=== PATIENT | female | born 1955 | race African-American/Black ===

== ENCOUNTER 2016-04-17 09:51 | Inpatient (IN) | payer OTHER ==
[~2016-04-17] VITALS: Ht 180.3 cm; Wt 113.4 kg
[2016-04-17 10:36] VITALS: BP 106/80
--- NOTE | 2016-04-17 10:48 | NUR ---
60/F CAME FROM [facility]; C/O N/V/D, COUGHX3-4 DAYS. PER CAREGIVER: LOSS OF APPETITE AND ENERGY. LOMOTIL WAS GIVEN YESTERDAY WITH NO RELIEF. Hx SCHIZOPHRENIA. SKIN IS PINK/WARM/DRY; AAOX4 WITH EVEN AND STEADY GAIT; LUNGS CLEAR BL WITH NON PRODUCTIVE COUGH; HR EVEN AND REGULAR; PT DENIES ANY CP OR SOB, PATIENT STATES PAIN OF 0/10 AT THIS TIME; VSS; PATIENT POSITIONED FOR COMFORT; HOB ELEVATED; BEDRAILS UP X2; BED DOWN. ER MD MADE AWARE OF PT STATUS.
--- NOTE | 2016-04-17 11:05 | NUR ---
Patient being evaluated by physician at bedside.
[2016-04-17] MEDS ORDERED: ACETAMINOPHEN EXTRA STRENGTH 500 MG TAB PO ONE (11:15)
--- NOTE | 2016-04-17 11:53 | NUR ---
WAITING FOR UA FROM PT. STATES UNABLE TO URINATE AT THIS TIME. GAVE WATER PER MD. CUP PLACED AT BEDSIDE. PT AWARE OF URINE NEEDED.
--- NOTE | 2016-04-17 12:16 | NUR ---
PT FINISHED CUP OF WATER. STATES UNABLE TO URINATE AT THIS TIME. FULL CUP OF WATER LEFT AT BEDSIDE.
--- NOTE | 2016-04-17 13:17 | NUR ---
PT LEFT VIA WC FOR CT.
--- NOTE | 2016-04-17 14:15 | NUR ---
PT STATES UNABLE TO URNATE OR WANTING TO TRY AT THIS TIME. GAVE ANOTHER FULL CUP OF WATER. WILL ASSES IN 15-20 MIN.
[2016-04-17] MEDS ORDERED: metroNIDAZOLE 500 MG/NS PREMIX 100 ML IV ONE (15:45)
[2016-04-17] MEDS ORDERED: NACL 0.9% 1,000 ML IV ONE (15:55)
[2016-04-17] MEDS ORDERED: cefTRIAXone 1,000 MG VIAL ONE (15:55)
[2016-04-17] MEDS ORDERED: ONDANSETRON 4 MG/2 ML VIAL IVP PRN (17:05)
[2016-04-17] MEDS ORDERED: MORPHINE SULFATE 2 MG/ML SYR IVP PRN (17:05)
[2016-04-17] MEDS ORDERED: MORPHINE SULFATE 4 MG/ML SYR IVP PRN (17:05)
[2016-04-17] MEDS ORDERED: ACETAMINOPHEN 325 MG TAB PO PRN (17:05)
[2016-04-17] MEDS ORDERED: VANCOMYCIN PER PHARMACY MC PRN (17:20)
--- NOTE | 2016-04-17 18:02 | NUR ---
Patient will be admitted to care of Srinath ZAYAS. Admited to TELE. Will go to room 115. Belongings list completed. Report to NILSA YADAV.
--- NOTE | 2016-04-17 18:16 | NUR ---
PT LEFT ON GURNEY TO RM 115.
--- NOTE | 2016-04-17 18:20 | NUR ---
RECEIVED REPORT FROM ER NURSE. VITALS STABLE, PT RESTING COMFORTABLY.
--- NOTE | 2016-04-17 18:30 | NUR ---
PATIENT TAKEN TO ROOM 115 WITH ALL BELONGINGS IN STABLE CONDITON WITH ER STAFF.
--- NOTE | 2016-04-17 19:13 | NUR ---
ENDORSED TO BOX WORKER NURSE IN STABLE CONDITION.
--- NOTE | 2016-04-17 19:30 | NUR ---
RECEIVED REPORT FROM VICENTA ASH AT BEDSIDE. Admitted from [facility] with chief complaint of DIARRHEA X 5DAYS, FEVER, CHILLS, HEADACHE, DYSURIA, NAUSEA. A 60 y/o. Female, Appropriate. ALERT AWAKE ORIENTED X4. INITIAL ASSESSMENT DONE. NO S/S OF RESPIRATORY DISTRESS OR SOB NOTED. NO C/O PAIN OR ANY DISCOMFORT AT THIS TIME. SKIN IS INTACT CLEAN DRY AND WARM TO TOUCH. PLAN OF CARE REVIEWED TO PT AND VERBALIZED UNDERSTANDING. oriented to call light, bed, phone,television, bathroom, smoking policy, visiting hours, procedures, ID bracelet on. Belongings list checked. CALL LIGHT WITHIN REACH. WILL CONTINUE TO MONITOR.
--- NOTE | 2016-04-17 20:30 | NUR ---
PT IS REFUSING THE ULTRASOUND TRANSVAGINAL RIGHT NOW. SHE'S ASKING THAT IT WILL BE DONE IN THE MORNING. WILL CONTINUE TO MONITOR.
[2016-04-17] MEDS ORDERED: PIPERACILLIN/TAZOBACTAM 3.375 GM in DEXTROSE 5% 50 ML IV SCH (21:00)
[2016-04-17] MEDS: NACL 0.9% 1,000 ML IV SCH (21:10)
[2016-04-17] MEDS: PIPER/TAZO 3.375GM/D5W PREMIX 50 ML IV SCH (21:12)
[2016-04-17] MEDS: VANCOMYCIN 1,250 MG in DEXTROSE 5% 250 ML IV SCH (21:12)
[2016-04-17] MEDS: guaiFENesin 20 MG/ML UDC PO PRN (22:43)
[2016-04-18] VITALS: BP 133/84
--- NOTE | 2016-04-18 00:20 | NUR ---
PT IS SLEEPING RIGHT NOW BUT EASILY AROUSABLE. NO S/S OF ANY DISCOMFORT AT THIS TIME. ALL NEEDS ARE ATTENDED. CALL LIGHT WITHIN REACH. WILL CONTINUE TO MONITOR.
[2016-04-18] MEDS: NACL 0.9% 1,000 ML IV SCH ×3 (03:02→23:03)
[2016-04-18 04:00] VITALS: BP 128/81
[2016-04-18] MEDS: PIPER/TAZO 3.375GM/D5W PREMIX 50 ML IV SCH ×3 (04:27→20:22)
--- NOTE | 2016-04-18 05:30 | NUR ---
AM CARE RENDERED. BED LINEN CHANGED. INSTRUCTED PT TO REPOSITION. KEPT CLEAN AND DRY. CALL LIGHT WITHIN REACH. WILL CONTINUE TO MONITOR.
--- NOTE | 2016-04-18 07:29 | NUR ---
PT HAS NO S/S OF ANY DISCOMFORT. PLAN OF CARE ENDORSED TO CHERELLE RN AT BEDSIDE FOR CONTINUITY OF CARE.
--- NOTE | 2016-04-18 07:40 | NUR ---
RECEIVED REPORT FROM THE EDGE FINISHER NURSE KEN AT BEDSIDE. PATIENT IS AWAKE, ALERT, ORIENTEDX4. IV ON THE LEFT FOREARM, INTACT, AND PATENT. INITIAL ASSESSMENT DONE. SKIN INTACT. NO ROOM AIR NO S/S OF SOB OR DISTRESS. VITAL TAKEN AND WITHIN THE NORMAL LIMIT. SAFETY MEASURE CHECKED AND WILL CONTINUE TO MONITOR. CALL LIGHT WITHIN REACH.
[2016-04-18 08:00] VITALS: BP 126/63
--- NOTE | 2016-04-18 08:15 | NUR ---
PATIENT HAS BEEN SCREENED AND CATEGORIZED HIGH NUTRITION RISK. PATIENT WILL BE SEEN WITHIN 1-2 DAYS OF ADMISSION. 04/18/16-04/19/[address]
[2016-04-18] MEDS: metroNIDAZOLE 250 MG TAB PO SCH ×2 (09:00→16:46)
--- NOTE | 2016-04-18 09:00 | NUR ---
DUE MED GIVE, PATIENT TOLERATING WELL. D/C IV ACCESS ON THE LEFT FOREARM. PATIENT COMPLAINED OF PAIN WHILE FLUSHING. INSERTED IV ACCESS ON THE RIGHT FOREARM WITH 20GAUGE. WILL CONTINUE TO MONITOR. CALL LIGHT WITHIN REACH.
[2016-04-18] MEDS: VANCOMYCIN 1,250 MG in DEXTROSE 5% 250 ML IV SCH ×2 (09:48→20:22)
--- NOTE | 2016-04-18 11:00 | NUR ---
PATIENT TAKEN FOR CT SCAN.
[2016-04-18 12:00] VITALS: BP 111/62
--- NOTE | 2016-04-18 12:00 | NUR ---
PATIENT RETURNED FROM CT. VITAL TAKES AND WITHIN THE NORMAL LIMIT. EATING LUNCH NO COMPLAINED OF PAIN.
--- NOTE | 2016-04-18 13:00 | NUR ---
ZOSYN STARTED INFUSING. PATIENT IS EATING. NO COMPLAINED OF PAIN OR S/S OF DISTRESS. CALL LIGHT WITHIN REACH.
--- NOTE | 2016-04-18 14:10 | NUR ---
04/18/16 RD INITIAL ASSESSMENT COMPLETED PLEASE REFER TO NUTRITION ASSESSMENT UNDER CARE ACTIVITY FOR ESTIMATED NUTRITIONAL NEEDS. RD RECOMMENDATIONS: 1. CONTINUE CLEAR LIQUID DIET MEDICALLY APPROPRIATE PER MD. 2. IF/WHEN PT IS MEDICALLY STABLE TO ADVANCE DIET, CONSIDER ADVANCE TOLERATED TO REGULAR DIET. --NOTE PT WITH INCREASED KCAL AND PROTEIN NEEDS D/T DX OF SEPSIS. 3. RD WILL F/U 3-5 DAYS; MODERATE RISK. SUSAN JEFFERS, RD
[2016-04-18] MEDS ORDERED: POTASSIUM CHLORIDE 10 MEQ TABER PO SCH (14:39)
--- NOTE | 2016-04-18 15:09 | NUR ---
K-DUR GIVEN FOR LOW POTASSIUM OF 3.4. PATIENT TOLERATED WELL.
[2016-04-18 16:00] VITALS: BP 104/83
--- NOTE | 2016-04-18 16:34 | NUR ---
VITALS TAKEN AND WITHIN THE NORMAL LIMIT. PATIENT DENIED ANY PAIN. NO S/S OF DISTRESS. CALL LIGHT WITHIN REACH.
--- NOTE | 2016-04-18 16:46 | NUR ---
DUE MEDS GIVEN, PATIENT TOLERATED. WILL CONTINUE TO MONITOR. CALL LIGHT WITHIN REACH.
--- NOTE | 2016-04-18 18:24 | NUR ---
PATIENT EATING DINNER. DENIED ANY PAIN. NO S/S OF DISTRESS. WILL CONTINUE TO MONITOR. CALL LIGHT WITHIN REACH.
--- NOTE | 2016-04-18 19:21 | NUR ---
GAVE REPORT TO THE EQUIPMENT VALIDATION SPECIALIST NURSE KEN AT BEDSIDE. PATIENT IS IN STABLE CONDITION AND ALL NEED MET AT THIS TIME.
--- NOTE | 2016-04-18 19:30 | NUR ---
RECEIVED REPORT FROM NAVDEEP ASH AT BEDSIDE. PT IS ALERT AWAKE ORIENTED X4. INITIAL ASSESSMENT DONE. NO S/S OF RESPIRATORY DISTRESS OR SOB NOTED. NO C/O PAIN OR ANY DISCOMFORT AT THIS TIME. PLAN OF CARE REVIEWED TO PT AND VERBALIZED UNDERSTANDING. CALL LIGHT WITHIN REACH. WILL CONTINUE TO MONITOR.
[2016-04-18 20:00] VITALS: BP 115/76
[2016-04-19] VITALS: BP 111/74
[2016-04-19] MEDS: guaiFENesin 20 MG/ML UDC PO PRN ×4 (01:23→23:14)
[2016-04-19 04:00] VITALS: BP 118/82
[2016-04-19] MEDS: PIPER/TAZO 3.375GM/D5W PREMIX 50 ML IV SCH ×3 (04:08→20:49)
--- NOTE | 2016-04-19 05:30 | NUR ---
AM CARE RENDERED. BED LINEN CHANGED. INSTRUCTED PT TO REPOSITION. KEPT CLEAN AND DRY. CALL LIGHT WITHIN REACH. WILL CONTINUE TO MONITOR.
--- NOTE | 2016-04-19 07:30 | NUR ---
PT HAS NO S/S OF ANY DISCOMFORT. PLAN OF CARE ENDORSED TO DENI ASH AT BEDSIDE FOR CONTINUITY OF CARE.
--- NOTE | 2016-04-19 07:30 | NUR ---
RECEIVED PT RESTING COMFORTABLY IN BED; AAOX4, ABLE TO VERBALIZE NEEDS. PT DENIES ANY N/V/D, NO S/S ACUTE DISTRESS AT THIS TIME. ROUTINE/PLAN OF CARE DISCUSSED AND REVIEWED, PT VERBALIZES UNDERSTANDING AND COMPLIANCE. IVF INFUSING WELL TO RIGHT FA, SITE ASYMPTOMATIC. CONTACT ISO AND SAFETY PRECAUTIONS OBSERVED AND MAINTAINED. CALL LIGHT IN REACH. WILL CONTINUE TO MONITOR.
[2016-04-19 08:00] VITALS: BP 128/72
[2016-04-19] MEDS: metroNIDAZOLE 250 MG TAB PO SCH ×2 (08:53→17:23)
[2016-04-19] MEDS: VANCOMYCIN 1,250 MG in DEXTROSE 5% 250 ML IV SCH ×2 (08:58→21:38)
[2016-04-19] MEDS: NACL 0.9% 1,000 ML IV SCH (09:02)
--- NOTE | 2016-04-19 09:06 | NUR ---
VSS. ADMINISTERED ROUTINE MEDS AND PRN ROBITUSSIN FOR COUGH ORDERED WITH EDUCATION; PT TOLERATED WELL. WILL INDEPENDENT ADLs OBSERVED. WILL CONTINUE TO MONITOR.
[2016-04-19 12:00] VITALS: BP 119/65
--- NOTE | 2016-04-19 12:50 | NUR ---
PT SHOWERED. CONTINUES TO DENY ANY N/V/D OR ABD PAIN. NOTIFIED DR BURROUGHS, NEW ORDERS ACKNOWLEDGED AND CARRIED OUT.
[2016-04-19 16:00] VITALS: BP 109/54
--- NOTE | 2016-04-19 16:15 | NUR ---
VSS. PT SEEN AND ASSESSED BY DR BURROUGHS, DISCUSSED PT CONDITION AND PLAN OF CARE.
--- NOTE | 2016-04-19 17:23 | NUR ---
SCHEDULE FLAGYL PO AND PRN ROBITUSSIN GIVEN ORDERED AT THIS TIME WITH EDUCATION, PT TOLERATED WELL. CONDITION REMAINS STABLE.
--- NOTE | 2016-04-19 19:20 | NUR ---
CONDITION REMAINS STABLE; ENDORSED PLAN OF CARE TO MORTARMAN COMMERCIAL ASSISTANT
--- NOTE | 2016-04-19 19:21 | NUR ---
RECD. RESTING IN BED, AWAKE, A/OX4. RESPIRATION EVEN AND UNLABORED. OCCASIONALLY COUGH, CLAIMED SPUTUM IS WHITE. IV SALINE LOCK RIGHT AC G22, PATENT AND INTACT. DENIES HAVING DIARRHEA. CUP FOR SPUTUM GIVEN, INSTRUCTED WHEN PHLEGM COMES OUT PUT IN THE CUP AND CALL NURSE. PLAN OF CARE FOR THE SHIFT DISCUSSED. VERBALIZED UNDERSTANDING. DENIES PAIN 0/10.
--- NOTE | 2016-04-19 19:30 | NUR ---
Patient's Plan of Care was discussed and reviewed with FISHING ROD ASSEMBLER: BABS Cortes
[2016-04-19 20:00] VITALS: BP 113/62
--- NOTE | 2016-04-19 20:30 | NUR ---
COMPLAINT OF UNCOMFORTABLE BED, MATTRESS TOO FIRM. ADDITIONAL 2 PILLOWS GIVEN FOR COMFORT.
--- NOTE | 2016-04-19 21:30 | NUR ---
COMPLAINT OF UNABLE TO HAVE BM SINCE ADMISSION. TWO WARM PRUNE JUICE GIVEN.
--- NOTE | 2016-04-19 23:14 | NUR ---
WITH COUGHING, MEDICATED WITH ROBITUSSIN 5 ML PO.
[2016-04-20] VITALS: BP 112/62
--- NOTE | 2016-04-20 00:14 | NUR ---
NO COUGHING NOTED, SLEEPING COMFORTABLY IN BED.
--- NOTE | 2016-04-20 02:35 | NUR ---
SLEEPING IN BED, NO APPEARANCE OF PAIN NOTED.
[2016-04-20 04:00] VITALS: BP 115/65
[2016-04-20] MEDS: PIPER/TAZO 3.375GM/D5W PREMIX 50 ML IV SCH ×2 (04:25→12:04)
[2016-04-20] MEDS: guaiFENesin 20 MG/ML UDC PO PRN ×2 (05:51→12:52)
--- NOTE | 2016-04-20 05:51 | NUR ---
COMPLAINT OF COUGHING, MEDICATED WITH ROBITUSSIN ORDERED.
--- NOTE | 2016-04-20 06:00 | NUR ---
REMINDED REGARDING HER SPUTUM FOR SENDING TO THE LAB, SEEMS STILL DROWSY.
--- NOTE | 2016-04-20 06:36 | NUR ---
RESTING COMFORTABLY IN BED, NO COUGHING NOTED.
--- NOTE | 2016-04-20 06:50 | NUR ---
CONDITION REMAIN STABLE. WILL ENDORSE TO AM NURSE FOR CONTINUITY OF CARE.
--- NOTE | 2016-04-20 07:15 | NUR ---
ENDORSED TO DARA LÓPEZ RN FOR CONTINUITY OF CARE.
--- NOTE | 2016-04-20 07:16 | NUR ---
RECEIVED REPORT FROM POST EXCHANGE MANAGER NURSE. PT EATING WITH GOOD APPETITE. PT IS AAOX4, DENIES PAIN/DISCOMFORT AT THIS TIME. SKIN IS DRY AND INTACT. IV IS PATENT AND FLOWING. PT IS ON ROOM AIR, VITALS STABLE. CALL LIGHT WITHIN REACH. WILL CONTINUE TO MONITOR.
[2016-04-20 08:00] VITALS: BP 108/64
[2016-04-20] MEDS: metroNIDAZOLE 250 MG TAB PO SCH ×2 (08:37→16:13)
--- NOTE | 2016-04-20 08:38 | NUR ---
PT KASANDRA MEDS WELL.
[2016-04-20] MEDS ORDERED: ENOXAPARIN 40 MG/0.4 ML SYR SUBQ SCH (09:00)
[2016-04-20] MEDS: VANCOMYCIN 1,250 MG in DEXTROSE 5% 250 ML IV SCH (09:17)
--- NOTE | 2016-04-20 09:17 | NUR ---
KRISTYN ADMINISTERED PER LAZARO FROM PHARMACY.
--- NOTE | 2016-04-20 11:56 | NUR ---
VITALS REMAIN STABLE. WILL CONTINUE TO MONITOR.
[2016-04-20 12:21] VITALS: BP 128/76
--- NOTE | 2016-04-20 12:52 | NUR ---
SPUTUM CULTURE SENT TO LAB. PT C/O COUGH, MEDICATED PRESCRIBED.
--- NOTE | 2016-04-20 14:36 | NUR ---
ALL NEEDS MET AT THIS TIME.
--- NOTE | 2016-04-20 15:58 | NUR ---
CM NOTE PER [facility] # [phone], REVIEWS SHOULD ONLY GO TO [facility]. INITIAL REVIEW SENT TO [facility] FAX# [phone] ATTN: FARZAD # [phone]
[2016-04-20 16:00] VITALS: BP 107/69
--- NOTE | 2016-04-20 16:23 | NUR ---
SS NOTE: I RECEIVED A CALL FROM MADDIE CHILDRESS FROM THE OFFICE OF PUBLIC GUARDIAN. HE STATED THAT PT'S PUBLIC GUARDIAN IS PRADIP HUMMEL ([phone]) AND HE IS RESPONSIBLE FOR PT. HE ALSO STATED THAT PT'S CONSERVATORSHIP PAPERWORK HAS BEEN SENT OVER. I RECEIVED PT'S CONSERVATORSHIP PAPERWORK AND PLACED THEM IN PT'S CHART.
--- NOTE | 2016-04-20 17:30 | NUR ---
D/C ORDER IN PER DR. BURROUGHS. DISCUSSED DISCHARGE INSTRUCTIONS WITH PT. PT SIGNED AND VERBALIZED UNDERSTANDING. IV REMOVED WITH CANNULA INTACT. WRISTBANDS REMOVED. VITALS REMAIN STABLE. INFORMED CINDY FROM [facility].
--- NOTE | 2016-04-20 19:14 | NUR ---
PT AWAITING FOR TRANSPORTATION, ENDORSED TO CHIEF SERVICE DISPATCHER NURSE IN STABLE CONDITION.
--- NOTE | 2016-04-20 19:20 | NUR ---
PATIENT PICKED UP BY DA TO [facility], WHEELED OUT BY THAI OCAMPO. TAXI VOUCHER GIVEN.
== END 2016-04-20 19:15 | disposition home or self-care (01) | DRG 720 ==
LOC: MED 09:58 → MTU 16:49
PROVIDERS: ADMIT Hospitalist; ATTEND Hospitalist
DX: A41.9 Sepsis, unspecified organism (principal); J18.9 Pneumonia, unspecified organism; A59.9 Trichomoniasis, unspecified; I10 Essential (primary) hypertension; E11.9 Type 2 diabetes mellitus without complications; N39.0 Urinary tract infection, site not specified; K52.9 Noninfective gastroenteritis and colitis, unspecified; D35.02 Benign neoplasm of left adrenal gland; D35.01 Benign neoplasm of right adrenal gland; F17.200 Nicotine dependence, unspecified, uncomplicated; F20.9 Schizophrenia, unspecified

== ENCOUNTER 2016-05-22 20:37 | Inpatient (IN) | payer OTHER ==
[~2016-05-22] VITALS: Ht 180.3 cm; Wt 103.4 kg
--- NOTE | 2016-05-22 20:42 | NUR ---
CHRISTEL BLS TO ER BED 1
[2016-05-22 20:46] VITALS: BP 139/90
--- NOTE | 2016-05-22 21:15 | NUR ---
5150 HOLD-ASSAULTED ROOMATE TODAY AT INTERMEDIATE. HAS HX OF SCHIZOPHRENIA. IS BEING SOCIALLY APPROPRIATE HERE AT THIS TIME. PT HAS NOT VOICED CONCERN TO HARM HERSELF OR OTHERS AT THIS TIME. DENIES N/V/D; SKIN IS PINK/WARM/DRY; AAOX4 WITH EVEN AND STEADY GAIT; LUNGS CLEAR BL; HR EVEN AND REGULAR; PT DENIES ANY FEVER, CP, SOB, OR COUGH AT THIS TIME; PATIENT STATES PAIN OF 0/10 AT THIS TIME; VSS; PATIENT POSITIONED FOR COMFORT; HOB ELEVATED; BEDRAILS UP X2; BED DOWN. ER MD MADE AWARE OF PT STATUS.
--- NOTE | 2016-05-22 21:45 | NUR ---
PT SOCIALLY APPROPRIATE AT THIS TIME.
--- NOTE | 2016-05-22 22:00 | NUR ---
NO CHANGE WITH PT AT THIS. SOCIALLY APPROPRIATE WITH STAFF AND OTHERS AT THIS TIME.
--- NOTE | 2016-05-22 22:30 | NUR ---
NO CHANGE WITH PT AT THIS TIME. APPROPRIATE AT THIS TIME. NO THREATS TO HURT OTHERS OR HERSELF.
[2016-05-22] MEDS ORDERED: ACETAMINOPHEN 325 MG TAB PO PRN (22:45)
[2016-05-22] MEDS ORDERED: LORazepam 2 MG/ML VIAL IVP PRN (22:45)
[2016-05-22] MEDS ORDERED: MORPHINE SULFATE 2 MG/ML SYR IVP PRN (22:45)
[2016-05-22] MEDS ORDERED: ONDANSETRON 4 MG/2 ML VIAL IVP PRN (22:45)
[2016-05-23] VITALS: BP 156/89
--- NOTE | 2016-05-23 00:14 | NUR ---
Patient will be admitted to care of TELE. Admited to ICU IN LIEU OF TELE FOR OBERVATION FOR 5150. Will go to ROOM2. Belongings list completed. Report tO QUEENIE ASH.
--- NOTE | 2016-05-23 00:18 | NUR ---
RECEIVED PATIENT FROM ER VIA WHEELCHAIR. DX IS 5150. PATIENT IS ALERT, AWAKE, AND IS AMBULATORY. PATIENT IS ABLE TO AMBULATE FROM WHEELCHAIR TO BED WITH STEADY GAIT. VITAL SIGNS ARE FOLLOWS: TEMPERATURE IS 97.8, HR 85, BP 156/89, AND 100% ON ROOM AIR. NO SIGNS OF SOB OR DISTRESS NOTED. MRSA SWAB COLLECTED. THERE IS A #22 IN THE LEFT AC SALINE LOCK. SITE IS DRY AND INTACT. EXPLAINED TO PATIENT TONIGHT'S PLAN OF CARE TO INCLUDE OBSERVATION, VITAL SIGNS Q8H, AND PRN MEDICATIONS. PATIENT VERBALIZED UNDERSTANDING. HOB AT 30 DEGREES WITH BED IN LOW POSITION. CONTINUE TO MONITOR PATIENT. Addendum: 05/23/16 at 0026 by Cristel Montelongo RN PATIENT IS HERE FOR OBSERVATION R/T DX 5150 HOLD AND IS MED-SURG STATUS.
--- NOTE | 2016-05-23 01:58 | NUR ---
PATIENT RESTING IN BED WATCHING TV. NO SIGNS OF SOB OR ACUTE DISTRESS NOTED. CONTINUE TO MONITOR.
--- NOTE | 2016-05-23 03:25 | NUR ---
PATIENT GOT UP FROM BED AND AMBULATED TO BATHROOM TO VOID. NO SIGNS OF DISTRESS. PATIENT RETURNED BACK TO BED. PLACED BSC NEXT TO PATIENT'S BED AND INSTRUCTED PATIENT TO USE BSC TO VOID AND FOR BM. PATIENT VERBALIZED UNDERSTANDING. PATIENT'S NEEDS MET AT THIS TIME. CONTINUE TO MONITOR.
--- NOTE | 2016-05-23 03:41 | NUR ---
PATIENT REFUSED BLOOD PRESSURE CUFF. CONTINUE TO MONITOR PATIENT.
--- NOTE | 2016-05-23 05:00 | NUR ---
PATIENT REMOVED PULSE OX. NO SIGNS OF DISTRESS OR DISCOMFORT NOTED. CONTINUE TO MONITOR PATIENT.
--- NOTE | 2016-05-23 06:24 | NUR ---
PATIENT USED BSC TO VOID. MORNING CARE RENDERED. ASSISTED PATIENT WITH SELF-CARE. PATIENT ABLE TO PERFORM PERINEAL CARE. CHANGED PATIENT'S GOWN AND BED LINENS. PATIENT'S NEEDS EMT AT THIS TIME. CONTINUE TO MONITOR PATIENT.
--- NOTE | 2016-05-23 07:08 | NUR ---
PATIENT RESTING IN BED WITH NO SIGNS OF ACUTE DISTRESS. ALL NEEDS ATTENDED TO DURING SHIFT. ENDORSED CONTINUITY OF CARE TO WINTER ASH.
--- NOTE | 2016-05-23 07:20 | NUR ---
RECEIVED PATIENT FROM NILSA DAWN. PT SEEN AT BEDSIDE. PT AAOX4; ON ROOM AIR WITH NO S/S DISTRESS OR SOB AT THIS TIME. PT REFUSED LIVESTOCK FEEDER AND PULSE OX AT THIS TIME; PER PT, OK TO TAKE BP. PT HAS LEFT AC 22G IV SALINE LOCKED AT THIS TIME. PT IS AMBULATORY; SKIN WARM, DRY, AND INTACT. PT C/O HEADACHE; WHEN OFFERED TYLENOL, PT REFUSED, SAYING "I'M ON TOO MANY MEDS ALREADY". SAFETY MEASURES CHECKED, CALL LIGHT LEFT AT BEDSIDE, WILL CONTINUE TO MONITOR.
[2016-05-23 08:00] VITALS: BP 137/67
--- NOTE | 2016-05-23 08:10 | NUR ---
PT SIGNED FOR ADMISSION PAPERWORK EXCEPT FOR CONDITION OF ADMISSION.
--- NOTE | 2016-05-23 08:30 | NUR ---
PT REFUSED LOVENOX. EXPLAINED TO PT RISKS AND BENEFITS OF MEDICATION. PT STILL REFUSED. ASKED IF PATIENT WOULD BE OK WITH SCD'S. PT REFUSED SCD'S ALSO.
--- NOTE | 2016-05-23 08:43 | NUR ---
PATIENT HAS BEEN SCREENED AND CATEGORIZED MODERATE NUTRITION RISK. PATIENT WILL BE SEEN WITHIN 3-5 DAYS OF ADMISSION. 05/25/16-05/27/[address]
[2016-05-23] MEDS: ENOXAPARIN 40 MG/0.4 ML SYR SUBQ SCH (08:46)
--- NOTE | 2016-05-23 08:49 | NUR ---
PT REQUESTING TYLENOL FOR HEADACHE 07/22. TYLENOL ADMINISTERED WITH EDUCATION. WILL CONTINUE TO MONITOR.
--- NOTE | 2016-05-23 09:49 | NUR ---
PT SLEEPING AT THIS TIME. WILL CONTINUE TO MONITOR.
--- NOTE | 2016-05-23 11:20 | NUR ---
CALLED DR. FRANCO. PER , HE WANTS PSYCH CONSULT IN AND WILL BE AT HOSPITAL AROUND 1230. WILL FOLLOW UP WITH ORDERS.
--- NOTE | 2016-05-23 11:40 | NUR ---
FAXED FACE SHEET TO DR. DANIEL AND PAGED.
--- NOTE | 2016-05-23 11:55 | NUR ---
PT INSTRUCTIONS GIVEN TO PATIENT. FORM SIGNED. PATIENT IS READING INSTRUCTIONS AT THIS TIME. LET PATIENT KNOW TO ASK RN QUESTIONS IF SHE HAS ANY. PT VERBALIZED UNDERSTANDING.
--- NOTE | 2016-05-23 12:04 | NUR ---
ASSISTED WITH LUNCH MEAL TRAY.
--- NOTE | 2016-05-23 12:35 | NUR ---
DR FRANCO AT NURSING STATION. UPDATED MD ON PATIENT CONDITION. WILL FOLLOW UP ON ORDERS.
[2016-05-23] MEDS ORDERED: HYDROcodone/APAP 5/325 MG 1 TAB TAB PO PRN (12:55)
--- NOTE | 2016-05-23 13:00 | NUR ---
OFFERED TOOTHBRUSH AND TOOTHPASTE FOR ORAL CARE.
[2016-05-23] MEDS ORDERED: HALOPERIDOL IM 5 MG/ML VIAL IM PRN (13:05)
[2016-05-23] MEDS ORDERED: COLACE100 M1 PO (13:18)
[2016-05-23] MEDS ORDERED: SEROQUEL400 MG PO (13:18)
[2016-05-23] MEDS ORDERED: DITROPAN5 MG PO (13:18)
[2016-05-23] MEDS ORDERED: MILK OF MA400 MG/5 M PO (13:18)
[2016-05-23] MEDS ORDERED: ESKALITH300 M3 PO (13:18)
[2016-05-23] MEDS ORDERED: CLOZARIL100 MG PO (13:18)
[2016-05-23] MEDS ORDERED: DEPAKOTE250 MG PO (13:18)
[2016-05-23] MEDS ORDERED: VITAMIN D400 UNIT PO (13:18)
--- NOTE | 2016-05-23 15:30 | NUR ---
PT ASKING WHEN PSYCHIATRIST IS COMING. LET PATIENT KNOW THAT PSYCHIATRIST HAD CALLED EARLIER AND SAID SHE WILL BE COMING IN TODAY. PT VERBALIZED UNDERSTANDING.
[2016-05-23 16:00] VITALS: BP 132/78
[2016-05-23] MEDS: DIVALPROEX 250 MG TABEC PO SCH (16:17)
--- NOTE | 2016-05-23 16:28 | NUR ---
ROUTINE MEDICATION GIVEN WITH EDUCATION. PT TOLERATED WELL. WILL CONTINUE TO MONITOR.
--- NOTE | 2016-05-23 16:30 | NUR ---
PHONE CALLED TO ,UPDATED HIM OF THE PATIENT'S CONDITION AND MADE HIM AWARE OF PSYCHOLOGIST WILL SEE THE PATIENT IN LATE EVENING. PER ; IT IS OKAY TO TRANSFER PATIENT TO [facility] WITH A SITTER. SAGGER PREPARER WAS INFORMED.
--- NOTE | 2016-05-23 17:35 | NUR ---
PT REFUSED DINNER TRAY EXCEPT JUICE AND TEA. PER PATIENT, "I NEED TO LOSE WEIGHT, BUT I CAN'T IF I DON'T WALK AROUND. I DON'T WANT THIS FOOD". TRAY KEPT ON DINNER CART.
--- NOTE | 2016-05-23 19:18 | NUR ---
ICU REPORT GIVEN TO RICHARD ANNE REGARDING PT. TRANSFER.
--- NOTE | 2016-05-23 19:50 | NUR ---
PT TRANSFERRED TO MED-SURG 121B ACCOMPANIED BY RN AND A SITTER VIA ICU BED. PT IS STABLE, NO SIGNS OF DISTRESS. PT COOPERATIVE AT THIS TIME. RECEIVING NURSE ON THE FLOOR WILL BE NILSA RAMOS.
[2016-05-23 20:00] VITALS: BP 148/90
--- NOTE | 2016-05-23 20:10 | NUR ---
PATIENT ARRIVED TO UNIT, TRANSFERRED FROM ICU, PATIENT IS AWAKE AND ALERT, COOPERATIVE AT THIS TIME, PATIENT WAS ASKED IF SHE WOULD LIKE ANYTHING TO EAT, PATIENT DECLINED STATED SHE ALREADY DID, PROVIDED PATIENT WITH NEW GOWN, SKIN IS INTACT, IV IS TO LAC 22G PATENT, SALINE LOCKED, INFORMED PATIENT MEDS WILL BE GIVEN, PATIENT STATED "I DONT WANT TO TAKE ANY OF MY MEDICATIONS, I AM GOOD, I AM GETTING ADDICTED TO THEM." ASKED PATIENT IF SHE WAS SURE SHE DID NOT WANT TO TAKE HER SCHEDULED MEDS, PATIENT SHOOK HER HEAD NO AND STATED," NO I DONT WANT TO TAKE THEM TONIGHT." DISCUSSED PLAN OF CARE WITH PATIENT, PATIENT VERBALIZED UNDERSTANDING, VITAL SIGNS STABLE, PATIENT ON 1:1 SITTER. SAFETY MEASURES CHECKED, CALL LIGHT WITHIN REACH. WILL CONTINUE TO MONITOR.
[2016-05-23] MEDS: DOCUSATE SODIUM 250 MG GELCAP PO SCH (21:00)
[2016-05-23] MEDS: cloZAPine 100 MG TAB PO SCH (21:00)
[2016-05-23] MEDS: LITHIUM CARBONATE 300 MG TAB PO SCH (21:00)
[2016-05-23] MEDS: MAGNESIUM HYDROXIDE 2400 MG/30 ML UDC PO SCH (21:00)
[2016-05-23] MEDS: OXYBUTYNIN 5 MG TAB PO SCH (21:00)
[2016-05-23] MEDS: QUEtiapine FUMARATE 100 MG TAB PO SCH (21:00)
--- NOTE | 2016-05-23 22:00 | NUR ---
PATIENT IS SLEEPING, NO SOB OR SIGN OF DISTRESS AT THIS TIME, 1:1 SITTER, CALL LIGHT WITHIN REACH. WILL CONTINUE TO MONITOR.
--- NOTE | 2016-05-24 00:20 | NUR ---
PATIENT SLEEPING, NO SIGN OF DISTRESS AT THIS TIME, CALL LIGHT WITHIN REACH. WILL CONTINUE TO MONITOR. 1:1 SITTER.
--- NOTE | 2016-05-24 03:25 | NUR ---
PATIENT SLEEPING, NO SOB OR SIGN OF DISTRESS AT THIS TIME, CALL LIGHT WITHIN REACH. WILL CONTINUE TO MONITOR. PATIENT STILL 1:1 SITTER.
--- NOTE | 2016-05-24 06:33 | NUR ---
PATIENT SLEEPING, NO SOB OR SIGN OF DISTRESS, CALL LIGHT WITHIN REACH. WILL CONTINUE TO MONITOR. 1:1 SITTER.
--- NOTE | 2016-05-24 07:12 | NUR ---
ASSUMED CONTINUITY OF CARE. NO SIGNS AND SYMPTOMS OF ACUTE DISTRESS NOTED. INITIAL ASSESSMENT DONE. NO SUICIDAL THOUGHTS OBSERVED. CALM, QUIET BUT NOT COOPERATIVE. KEEP SURROUNDINGS SAFE. CLOSELY MONITORED BY A SITTER 1:1. EXPLAINED DIAGNOSIS, PLAN OF CARE, PAIN MANAGEMENT TEACHING, USE OF CALL LIGHT/BED/TV/BATHROOM. VERBALIZED UNDERSTANDING. CALL LIGHT WITHIN REACH.
--- NOTE | 2016-05-24 07:12 | NUR ---
ENDORSED REPORT TO DAY OIL CHANGE TECHNICIAN, PATIENT IN STABLE CONDITION. PATIENT CONTINUED TO BE 1:1 SITTER.
--- NOTE | 2016-05-24 08:00 | NUR ---
Patient's Plan of Care was discussed and reviewed with DIRECTOR OF SOCIAL WORK: COSME Shaw
[2016-05-24] MEDS: ENOXAPARIN 40 MG/0.4 ML SYR SUBQ SCH (09:00)
[2016-05-24] MEDS ORDERED: ERGOCALCIFEROL 2000 UNIT PO SCH (09:00)
[2016-05-24] MEDS: DIVALPROEX 250 MG TABEC PO SCH ×3 (09:01→16:39)
[2016-05-24] MEDS: DOCUSATE SODIUM 250 MG GELCAP PO SCH ×2 (09:03→20:41)
[2016-05-24] MEDS: CHOLECALCIFEROL 1,000 IU TAB PO SCH (09:03)
[2016-05-24] MEDS: CLINICAL MONITORING MC SCH (09:06)
--- NOTE | 2016-05-24 11:19 | NUR ---
WENT TO BATHROOM WITHOUT ASSISTANCE. TOLERATED WELL. NO SOB, NOTED. NO UNTOWARD BEHAVIOR OBSERVED. WILL MONITOR.
[2016-05-24 12:00] VITALS: BP 136/80
--- NOTE | 2016-05-24 14:30 | NUR ---
CALM, QUIET WHILE WATCHING TV. NO DISCOMFORT NOTED. CONTINUE MONITORING.
--- NOTE | 2016-05-24 17:43 | NUR ---
PLAYING CARDS ON THE TABLE. PT. COOPERATIVE AND NO SUICIDAL THOUGHTS NOTICED. KEEP FREE FROM INJURY.
--- NOTE | 2016-05-24 19:00 | NUR ---
BEDSIDE REPORT GIVEN TO LAISHA JHA. IN STABLE CONDITION.
--- NOTE | 2016-05-24 19:05 | NUR ---
PT IS MIKIE
--- NOTE | 2016-05-24 19:05 | NUR ---
PATIENT IS CURRENTLY AWAKE ALERT ABLE TO MAKE NEEDS KNOWN NO SUICIDAL THOUGHTS OR ATTEMPTS PT TALKS ABOUT DIFFERENT THINGS CONVERSATIONS DON'T MAKE SENSE LIKES TO TALK ABOUT SEX. PT DENIES ANY HALLUCINATIONS OR HEARING VOICES AT THIS TIME. PATIENT IS PLEASANT SHE IS SMILING AT THIS TIME NO COMBATIVE OR AGGRESSIVE BEHAVIOR NOTED NEEDS MET.PT IS CLEAN AND DRY.ENVIRONMENT KEPT SAFE FOR THE PATIENT AND CONTINUES TO BE MONITORED AT BEDSIDE CLOSELY.
--- NOTE | 2016-05-24 19:26 | NUR ---
PATIENT WENT FOR A WALK WITH THAI SAAVEDRA,PATIENT STATES,"IM BORED AND TIRED OF LAYING DOWN WILL CONTINUE TO MONITOR PATIENT."
--- NOTE | 2016-05-24 19:30 | NUR ---
PATIENT IS BACK IN HER ROOM AND DOING WELL.
--- NOTE | 2016-05-24 19:38 | NUR ---
PATIENT WATCHING TV QUIETLY AND EATING A SNACK.
--- NOTE | 2016-05-24 20:00 | NUR ---
Patient's Plan of Care was discussed and reviewed with PROGRAM SERVICES PLANNER: LAISHA ELKINS
[2016-05-24] MEDS: OXYBUTYNIN 5 MG TAB PO SCH (20:35)
[2016-05-24] MEDS: LITHIUM CARBONATE 300 MG TAB PO SCH (20:35)
[2016-05-24] MEDS: QUEtiapine FUMARATE 100 MG TAB PO SCH (20:35)
[2016-05-24] MEDS: cloZAPine 100 MG TAB PO SCH (20:40)
--- NOTE | 2016-05-24 20:43 | NUR ---
PATIENT COOPERATIVE TOOK HER ROUTINE MEDS WELL AT THIS TIME AND IS CURRENTLY WATCHING TV. PATIENT ATE HER SANDWICH AND SNACKS..
[2016-05-24] MEDS: MAGNESIUM HYDROXIDE 2400 MG/30 ML UDC PO SCH (20:55)
--- NOTE | 2016-05-24 23:31 | NUR ---
PATIENT SLEEPING IN BED OCCASSIONALLY RESTLESS BUT CONTINUES TO SLEEP.PATIENT CONTINUES TO BE KEPT SAFE.NO IDEATION NO HALLUCINATIONS OR SUICIDAL THOUGHTS VERBALIZED BY THE PATIENT CONTINUES TO BE ASSISTED TO THE BATHROOM NEEDED.PATIENT CONTINUES TO BE OBSERVED AT BEDSIDE.
--- NOTE | 2016-05-25 02:07 | NUR ---
PATIENT SLEEPING COMFORTABLY IN BED WILL CONTINUE TO MONITOR.
--- NOTE | 2016-05-25 04:02 | NUR ---
PT SLEEPING WELL IN BED AT THIS TIME,NO DISTRESS,CONTINUES TO BE MONITORED.
--- NOTE | 2016-05-25 04:45 | NUR ---
PT WENT TO THE BATHROOM AND THEN I CHANGED HER BED LINEN AND GAVE HER NEW LINEN AND BLANKETS THEN PATIENT WENT BACK TO BED AND FELL ASLEEP AGAIN.WILL CONTINUE TO MONITOR.
--- NOTE | 2016-05-25 06:21 | NUR ---
PATIENT SLEEPING COMFORTABLY IN BED NO SUICIDAL THOUGHT OR ATTEMPT DURING THE NIGHT.NO EPISODES OF HALLUCINATIONS OR HEARING VOICES DURING THE NIGHT EITHER.PATIENT CONTINUES TO BE KEPT IN A SAFE ENVIRONMENT AND CONTINUES TO HAVE SITTER WATCHING HER CONSTANTLY.PATIENT CONTINUES TO SLEEP AT THIS TIME.NEEDS MET.CALL LIGHT WITHIN REACH.
--- NOTE | 2016-05-25 07:30 | NUR ---
RECEIVED PT RESTING COMFORTABLY IN BED, AAOX4, ABLE TO VERBALIZE NEEDS, SLURRED/MUMBLED SPEECH; NO COMPLAINTS OF PAIN, SOB, OR S/S ACUTE DISTRESS AT THIS TIME. ROUTINE/PLAN OF CARE DISCUSSED AND REVIEWED, PT VERBALIZES UNDERSTANDING AND COMPLIANCE. IV SL TO LEFT AC, SITE ASYMPTOMATIC. 1:1 SITTER AT BEDSIDE; SAFETY PRECAUTIONS OBSERVED AND MAINTAINED, ENCOURAGED PT TO CALL FOR ASSISTANCE NEEDED.
--- NOTE | 2016-05-25 07:31 | NUR ---
PATIENT STABLE REPORT ENDORSED TO NILSA ALMARAZ A BEDSIDE SHE WILL RESUME CARE OF THE PATIENT.
[2016-05-25 08:00] VITALS: BP 112/74
[2016-05-25] MEDS: ENOXAPARIN 40 MG/0.4 ML SYR SUBQ SCH (09:00)
[2016-05-25] MEDS: DOCUSATE SODIUM 250 MG GELCAP PO SCH ×2 (09:16→21:11)
[2016-05-25] MEDS: DIVALPROEX 250 MG TABEC PO SCH ×3 (09:16→17:41)
[2016-05-25] MEDS: CHOLECALCIFEROL 1,000 IU TAB PO SCH (09:16)
[2016-05-25] MEDS: CLINICAL MONITORING MC SCH (09:18)
--- NOTE | 2016-05-25 09:18 | NUR ---
VSS. PT REFUSED LOVENOX SUBQ DESPITE EDUCATION; ALL REMAINING MEDICATIONS GIVEN, PT TOLERATED WELL. MEDICATED WITH NORCO PO FOR C/O MODERATE GENERALIZED PAIN, SEE PAIN ASSESSMENT. ADLs PERFORMED WITH STANDBY ASSISTANCE. 1:1 SITTER AT BEDSIDE.
--- NOTE | 2016-05-25 10:08 | NUR ---
SS NOTE: SENT PSYCH PLACEMENT INQUIRIES TO: - [facility] - [facility]
--- NOTE | 2016-05-25 10:30 | NUR ---
PT SHOWERED AT THIS TIME AND RETURNED SAFELY TO ROOM, CONDITION STABLE. 1:1 SITTER AT BEDSIDE.
--- NOTE | 2016-05-25 12:23 | NUR ---
CM NOTE INITIAL REVIEW FAXED TO [facility] / FAX# [phone], ATTN: AUGUST #[phone]
--- NOTE | 2016-05-25 13:00 | NUR ---
CONDITION STABLE. ROUTINE MED ADMINISTERED ORDERED WITH EDUCATION, PT TOLERATED WELL. PT READING BIBLE COPING MECHANISM. 1:1 SITTER.
--- NOTE | 2016-05-25 14:18 | NUR ---
SS NOTE: I SPOKE WITH KOFFI FROM [facility] AND SHE STATED THAT THEY ARE REVIEWING PT'S INFORMATION. PER BALBIR FROM [facility], NO ADULT BEDS AVAILABLE PER JACQUELINE FROM [facility], PT'S INFORMATION IS PENDING REVIEW BUT THEY DO NOT HAVE ANY BEDS AVAILABLE AT THIS TIME. PER LAISHA FROM [facility], NO BEDS AVAILABLE
--- NOTE | 2016-05-25 16:00 | NUR ---
PT DENIES ANY PAIN, S/S ACUTE DISTRESS, OR SUICIDAL IDEATIONS. REFUSES TO HAVE VS TAKEN, STATES "IT BOTHERS ME." 1:1 SITTER AT BEDSIDE.
--- NOTE | 2016-05-25 19:11 | NUR ---
CONDITION STABLE, ENDORSED PLAN OF CARE TO [employer] SPECIAL AGENT RN.
--- NOTE | 2016-05-25 19:15 | NUR ---
RECEIVED REPORT FROM DAY NURSEDENI. PATIENT RESTING IN BED, WATCHING TELEVISION. 1:1 SITTER AT BEDSIDE. NO RESPIRATORY DISTRESS, SOB, OR DISCOMFORT. PATIENT DENIES ANY SUICIDAL IDEATION AT THIS TIME. INITIAL ASSESSMENT AND BODY CHECK DONE. PATIENT IS AOX4, SKIN IS INTACT, IV ACCESS TO LEFT AC 22G, PATENT. DISCUSSED PLAN OF CARE, MEDICATION REGIMENT, AND PAIN MANAGEMENT WITH PATIENT. PATIENT VERBALIZED UNDERSTANDING. PLACED PATIENT ON SAFETY/SUICIDE PRECAUTIONS. 1:1 SITTER AT BEDSIDE, CALL LIGHT LEFT WITHIN REACH, WILL CONTINUE TO MONITOR.
[2016-05-25] MEDS: OXYBUTYNIN 5 MG TAB PO SCH (21:11)
[2016-05-25] MEDS: LITHIUM CARBONATE 300 MG TAB PO SCH (21:11)
[2016-05-25] MEDS: cloZAPine 100 MG TAB PO SCH (21:11)
[2016-05-25] MEDS: MAGNESIUM HYDROXIDE 2400 MG/30 ML UDC PO SCH (21:11)
[2016-05-25] MEDS: QUEtiapine FUMARATE 100 MG TAB PO SCH (21:12)
--- NOTE | 2016-05-25 22:07 | NUR ---
PATIENT IN BED, SLEEPING. NO RESPIRATORY DISTRESS, SOB, OR DISCOMFORT. 1:1 SITTER AT BEDSIDE. CALL LIGHT LEFT WITHIN REACH, WILL CONTINUE TO MONITOR.
[2016-05-26] VITALS: BP 112/57
--- NOTE | 2016-05-26 00:58 | NUR ---
PATIENT ASLEEP. NO RESPIRATORY DISTRESS, SOB, OR DISCOMFORT. 1:1 SITTER AT BEDSIDE, CALL LIGHT LEFT WITHIN REACH, WILL CONTINUE TO MONITOR.
--- NOTE | 2016-05-26 03:10 | NUR ---
PATIENT SLEEPING. NO RESPIRATORY DISTRESS, SOB, OR DISCOMFORT. 1:1 SITTER AT BEDSIDE, CALL LIGHT LEFT WITHIN REACH, WILL CONTINUE TO MONITOR.
--- NOTE | 2016-05-26 06:17 | NUR ---
PATIENT IN BED, ASLEEP. NO RESPIRATORY DISTRESS, SOB, OR DISCOMFORT. CALL LIGHT LEFT WITHIN REACH, WILL CONTINUE TO MONITOR.
--- NOTE | 2016-05-26 07:17 | NUR ---
REPORT GIVEN TO DAY NURSEDENI. PATIENT RESTING IN BED, STABLE. NO RESPIRATORY DISTRESS, SOB, OR DISCOMFORT. ALL NEEDS ATTENDED TO DURING SHIFT, CALL LIGHT LEFT WITHIN REACH, 1:1 SITTER AT BEDSIDE.
--- NOTE | 2016-05-26 07:30 | NUR ---
RECEIVED PT RESTING COMFORTABLY IN BED, AAOX4, ABLE TO VERBALIZE NEEDS, SLURRED SPEECH; NO COMPLAINTS OF PAIN, SOB, OR S/S ACUTE DISTRESS AT THIS TIME. ROUTINE/PLAN OF CARE DISCUSSED AND REVIEWED, PT VERBALIZES UNDERSTANDING AND COMPLIANCE. IV SL TO LEFT AC, SITE ASYMPTOMATIC. 1:1 SITTER AT BEDSIDE; SAFETY PRECAUTIONS OBSERVED AND MAINTAINED, ENCOURAGED PT TO CALL FOR ASSISTANCE NEEDED.
[2016-05-26 08:00] VITALS: BP 116/77
[2016-05-26] MEDS: ENOXAPARIN 40 MG/0.4 ML SYR SUBQ SCH (09:00)
[2016-05-26] MEDS: CHOLECALCIFEROL 1,000 IU TAB PO SCH (09:17)
[2016-05-26] MEDS: DOCUSATE SODIUM 250 MG GELCAP PO SCH ×2 (09:17→21:43)
[2016-05-26] MEDS: DIVALPROEX 250 MG TABEC PO SCH ×3 (09:17→17:00)
[2016-05-26] MEDS: CLINICAL MONITORING MC SCH (09:18)
--- NOTE | 2016-05-26 09:20 | NUR ---
VSS. ADMINISTERED ROUTINE MEDS ORDERED. PT REFUSED LOVENOX INJECTION DESPITE EDUCATION OF RISKS/BENEFITS. INDEPENDENT ADLs OBSERVED. WILL CONTNIUE TO MONITOR. 1:1 SITTER.
--- NOTE | 2016-05-26 12:34 | NUR ---
CONDITION REMAINS STABLE. DUE MEDS ADMINISTERED WITH EDUCATION, PT TOLERATED WELL.
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
--- NOTE | 2016-05-26 13:20 | NUR ---
PAGED DR DANIEL AT THIS TIME, LEFT TELEPHONE MESSAGE REGARDING NEED FOR RE-EVAL AND NEW HOLD. WILL FOLLOW-UP.
--- NOTE | 2016-05-26 13:52 | NUR ---
CONCURRENT REVIEW FAXED TO [facility] [phone] PHONE MADISYN [phone]
--- NOTE | 2016-05-26 15:00 | NUR ---
PT RE-EVALUATED BY DR REYNAGA, STILL MEETS 5150 CRITERIA.
--- NOTE | 2016-05-26 17:45 | NUR ---
PT REFUSES VS AND DEPAKOTE DESPITE EDUCATION OF RISKS/BENEFITS.
--- NOTE | 2016-05-26 19:29 | NUR ---
CONDITION STABLE, ENDORSED PLAN OF CARE TO FORMULATOR RN.
--- NOTE | 2016-05-26 19:30 | NUR ---
RECD. RESTING IN BED, AWAKE, A/OX4. RESPIRATION EVEN AND UNLABORED. IV SALINE LOCK AT THE LEFT AC G22, PATENT AND INTACT. ON CLOSED MONITORING, 5150, SITTER NEAR DOOR MONITORING PATIENT BEHAVIOR. PLAN OF CARE FOR THE SHIFT DISCUSSED. VERBALIZED UNDERSTANDING. REQUESTING FOR A SANDWICH, WILL INFORM BUSHER HELPER. DENIES PAIN 0/10.
--- NOTE | 2016-05-26 20:45 | NUR ---
TURKEY SANDWICH GIVEN REQUESTED, ATE 100%.
[2016-05-26] MEDS: QUEtiapine FUMARATE 100 MG TAB PO SCH (21:44)
[2016-05-26] MEDS: OXYBUTYNIN 5 MG TAB PO SCH (21:44)
[2016-05-26] MEDS: LITHIUM CARBONATE 300 MG TAB PO SCH (21:45)
[2016-05-26] MEDS: cloZAPine 100 MG TAB PO SCH (21:47)
[2016-05-26] MEDS: MAGNESIUM HYDROXIDE 2400 MG/30 ML UDC PO SCH (21:47)
--- NOTE | 2016-05-26 22:00 | NUR ---
SLEPT EARLY, NO COMBATIVE BEHAVIOR NOTED.
--- NOTE | 2016-05-26 23:37 | NUR ---
Patient's Plan of Care was discussed and reviewed with TABLET MAKING MACHINE OPERATOR HELPER: SABA
[2016-05-27] VITALS: BP 118/65
--- NOTE | 2016-05-27 | NUR ---
IN BED, RESTING COMFORTABLY ASLEEP. SITTER MONITORING PATIENT.
--- NOTE | 2016-05-27 04:00 | NUR ---
AMBULATED FOUR TIMES TO BR TO VOID, NO SUICIDAL BEHAVIOR NOTED. SITTER AT THE BEDSIDE.
--- NOTE | 2016-05-27 07:00 | NUR ---
ABLE TO SLEEP WELL DURING THE NIGHT. SAFETY MAINTAINED DURING SHIFT. WILL ENDORSED TO AM NURSE FOR CONTINUITY OF CARE.
--- NOTE | 2016-05-27 07:25 | NUR ---
RECEIVED REPORT FROM NIGHT NURSE. PT IS AAOX4, ON ROOM AIR. IV TO LEFT AC 22G SALINE LOCK PATENT AND INTACT. SKIN INTACT. 1:1 SITTER AT BEDSIDE. INITIAL ASSESSMENT COMPLETED. REVIEWED PLAN OF CARE WITH PT. PT VERBALIZED UNDERSTANDING. ALL SAFETY PRECAUTIONS MET. ALL NEEDS MET. CALL LIGHT WITHIN REACH. WILL CONTINUE TO MONITOR.
--- NOTE | 2016-05-27 07:25 | NUR ---
ENDORSED TO NILSA KATZ FOR CONTINUITY OF CARE.
[2016-05-27 08:00] VITALS: BP 110/69
[2016-05-27] MEDS: ENOXAPARIN 40 MG/0.4 ML SYR SUBQ SCH (09:00)
[2016-05-27] MEDS: CHOLECALCIFEROL 1,000 IU TAB PO SCH (09:24)
[2016-05-27] MEDS: DIVALPROEX 250 MG TABEC PO SCH ×3 (09:24→17:32)
[2016-05-27] MEDS: DOCUSATE SODIUM 250 MG GELCAP PO SCH ×2 (09:25→21:24)
--- NOTE | 2016-05-27 09:25 | NUR ---
DUE MEDICATIONS GIVEN PT TOLERATED WELL. PT CURRENTLY IN BED. 1:1 SITTER. CALL LIGHT WITHIN [facility] WILL CONTINUE TO MONITOR
[2016-05-27] MEDS: CLINICAL MONITORING MC SCH (09:33)
--- NOTE | 2016-05-27 10:42 | NUR ---
SS NOTE: SENT PSYCH PLACEMENT INQUIRIES TO: - [facility]
--- NOTE | 2016-05-27 11:22 | NUR ---
CM NOTE: PER OTILIA FROM [facility], NO BEDS AVAILABLE. PER JACQUELINE FROM [facility], NO BEDS AVAILABLE YET. PER JOSEPH FROM [facility], NO BEDS AVAILABLE YET. THEY WILL CALL US SOON THERE'S AVAILABLE BED.
--- NOTE | 2016-05-27 11:45 | NUR ---
CHECKED IN ON PT. PT CURRENTLY READING IN BED, 1:1 SITTER AT BEDSIDE. CALL LIGHT WITHIN REACH. WILL CONTINUE TO MONITOR
--- NOTE | 2016-05-27 12:44 | NUR ---
FAXED CONCURRENT REVIEW TO [place] [phone] PHONE MADISYN [phone]
--- NOTE | 2016-05-27 12:57 | NUR ---
PINO NOTE: PER KIMBERLEE FROM [facility], THEY ARE STILL REVIEWING PATIENT'S INFO.
--- NOTE | 2016-05-27 13:18 | NUR ---
DUE MEDICATIONS GIVEN, PT CURRENTLY WATCHING TV. 1:1 SITTER AT BEDSIDE. CALL LIGHT WITHIN REACH. WILL CONTINUE TO MONITOR.
--- NOTE | 2016-05-27 13:49 | NUR ---
SS NOTE: BERNARD LEONE FROM [facility], NO BEDS AVAILABLE
--- NOTE | 2016-05-27 14:30 | NUR ---
RECEIVED CALLED FROM MAURICE FROM [facility] [phone], INQUIRING INFORMATION REGARDING PT'S 5150 HOLD. WILL FAX PT'S PAPER PAPER WORK TO [facility] TO [phone] JAMES OFFICE.
[2016-05-27 16:00] VITALS: BP 127/72
--- NOTE | 2016-05-27 16:55 | NUR ---
05/27/16 RD INITIAL ASSESSMENT COMPLETED PLEASE REFER TO NUTRITION ASSESSMENT UNDER CARE ACTIVITY FOR ESTIMATED NUTRITIONAL NEEDS. RD RECOMMENDATIONS: 1. CONTINUE REGULAR DIET TOLERATED --PT MEETING 100% OF ESTIMATED KCAL AND PROTEIN NEEDS. 2. RD WILL F/U 5-7 DAYS; LOW RISK. MARIA D ARIAS RD
--- NOTE | 2016-05-27 17:06 | NUR ---
FAX PT FACE SHEET TO OFFICE, AWAITING FOR 5150 HOLD TO COME IN
--- NOTE | 2016-05-27 17:23 | NUR ---
IN TO SEE PT.
--- NOTE | 2016-05-27 17:30 | NUR ---
PT CURRENTLY RESTING IN BED. UPDATED PT ON PLAN OF CARE, PT VERBALIZED UNDERSTANDING. 1:1 SITTER AT BEDSIDE CALL LIGHT WITHIN REACH.
--- NOTE | 2016-05-27 17:50 | NUR ---
FAXED [phone] HOLD TO [facility] AT [phone] CONFIRMATION RECEIVED.
--- NOTE | 2016-05-27 19:30 | NUR ---
RECEIVED REPORT FROM NILSA KATZ AT BEDSIDE. INITIAL ASSESSMENT COMPLETED. PT AAOX4. PT AMBULATES WITH ASSIST. PT HAS IV TO LEFT AC G 22 SL; ASYMPTOMATIC, PATENT AND INTACT. ORIENTED PT TO ROOM AND SURROUNDINGS AND USE OF CALL LIGHT. PT HAS 1:1 SITTER. WILL CONTINUE TO MONITOR PT.
--- NOTE | 2016-05-27 19:30 | NUR ---
ENDORSED PLAN OF CARE TO NIGHT NURSE. PT IN STABLE CONDITION.
[2016-05-27] MEDS: MAGNESIUM HYDROXIDE 2400 MG/30 ML UDC PO SCH (21:24)
[2016-05-27] MEDS: OXYBUTYNIN 5 MG TAB PO SCH (21:24)
[2016-05-27] MEDS: LITHIUM CARBONATE 300 MG TAB PO SCH (21:24)
[2016-05-27] MEDS: QUEtiapine FUMARATE 100 MG TAB PO SCH (21:24)
[2016-05-27] MEDS: cloZAPine 100 MG TAB PO SCH (21:25)
--- NOTE | 2016-05-27 21:30 | NUR ---
PT TOLERATED 2100 MEDS WELL. PT STABLE, PT WATCHING TV AT THIS TIME. SITTER AT BEDSIDE.
--- NOTE | 2016-05-27 22:05 | NUR ---
KYLE FROM [facility] CALLED TO NOTIFY US THAT THERE IS A ROOM AVAILABLE FOR PT. WILL FOLLOW UP.
[2016-05-27 22:55] VITALS: BP 136/78
--- NOTE | 2016-05-27 22:55 | NUR ---
CALLED [facility] TO PORTAL DEVELOPER PT TO TAKE TO [facility].
--- NOTE | 2016-05-27 23:55 | NUR ---
[facility] HERE TO COFFEE MAKER PT.
--- NOTE | 2016-05-28 00:15 | NUR ---
PT TRANSFER TO [facility] IN STABLE CONDITION. ALL BELONGINGS WITH HER.
== END 2016-05-28 00:15 | DRG 750 ==
LOC: MED 20:37 → MIC 22:44 → MTU 05-23 19:57
PROVIDERS: ADMIT Internal Medicine Pulmonary Disease; ATTEND Internal Medicine Pulmonary Disease
DX: F20.0 Paranoid schizophrenia (principal); N32.81 Overactive bladder; I10 Essential (primary) hypertension; R45.850 Homicidal ideations; J45.909 Unspecified asthma, uncomplicated; E78.00 Pure hypercholesterolemia, unspecified; F10.21 Alcohol dependence, in remission; F32.9 Major depressive disorder, single episode, unspecified; F41.9 Anxiety disorder, unspecified; F41.0 Panic disorder [episodic paroxysmal anxiety]; D64.9 Anemia, unspecified; F17.210 Nicotine dependence, cigarettes, uncomplicated; Z91.5 Personal history of self-harm

== ENCOUNTER 2016-07-06 18:41 | Emergency (ER) | payer OTHER ==
[~2016-07-06] VITALS: Ht 180.3 cm; Wt 115.4 kg
[~2016-07-06 18:41] MED LIST: CLOZARIL100 MG PO; COLACE100 M1 PO; DEPAKOTE250 MG PO; DITROPAN5 MG PO; ESKALITH300 M3 PO; MILK OF MA400 MG/5 M PO; SEROQUEL400 MG PO; VITAMIN D400 UNIT PO
[2016-07-06 19:26] VITALS: BP 138/99
--- NOTE | 2016-07-06 19:32 | NUR ---
OK PER DR ARORA TO TRIAGE PT TO THE LOBBY
--- NOTE | 2016-07-06 23:28 | NUR ---
TO ER BED 4
--- NOTE | 2016-07-06 23:47 | NUR ---
CHRISTEL, C/O CHEST PAIN X 3 YEARS , EKG DONE IN TRIAGE MED HX: SCHIZOPHRENIA/HTN/GRAVELY DISABLED . PT STATES I LIKE ATIVAN. DENIES N/V/D; SKIN IS PINK/WARM/DRY; AAOX4 WITH EVEN AND STEADY GAIT; LUNGS CLEAR BL; HR EVEN AND REGULAR; PT DENIES ANY FEVER, SOB, OR COUGH AT THIS TIME; PATIENT STATES PAIN OF 8/10 AT THIS TIME; PATIENT POSITIONED FOR COMFORT; HOB ELEVATED; BEDRAILS UP X2; BED DOWN.AT FIRST PT REFUSED TO WEAR GOWN, AFTER FEW MINUTES ABLE TO COOPERATE, PT SITTING IN BED AT THIS TIME,CALM
--- NOTE | 2016-07-06 23:47 | NUR ---
DR. ARORA AT BEDSIDE
[2016-07-06] MEDS ORDERED: LORazepam 2 MG/ML VIAL IM ONE (23:50)
[2016-07-07] MEDS ORDERED: LORazepam 1 MG TAB PO ONE (00:05)
--- NOTE | 2016-07-07 00:12 | NUR ---
REFUSED ATIVAN IM. MADE AWARE. ATIVAN 2 MG PO GIVEN INSTEAD.
--- NOTE | 2016-07-07 01:10 | NUR ---
PATIENT FOR DISCHARGE HOME. [facility] CONTACTED AT BUT NO ANSWER.
--- NOTE | 2016-07-07 01:25 | NUR ---
NUMBER GIVEN EARLIER WAS INCORRECT. CALLED NUMBER ON FACESHEET BUT STILL NOBODY ANSWERED.
--- NOTE | 2016-07-07 01:44 | NUR ---
[facility] AGAIN CALLED AT BUT STILL NOBODY PICKED UP.
--- NOTE | 2016-07-07 01:57 | NUR ---
DISCHARGE TO ER LOBBY STABLE. AFTERCARE INSTRUCTIONS GIVEN. VERBALIZED UNDERSTANDING. WILL KEEP CALLING [facility].
[2016-07-07 02:30] VITALS: BP 131/87
--- NOTE | 2016-07-07 02:48 | NUR ---
CALLED FRIEND NOREEN AT NUMBER GIVEN BY PT . LADY ON THE OTHER LINE DENIES SHE IS NOREEN AND DENIES KNOWING PT. WILL TRY ASSISTED LIVING AGAIN.
--- NOTE | 2016-07-07 05:45 | NUR ---
[facility] AGAIN CONTACTED BUT NOBODY ANSWERED. WILL ENDORSE TO AM SHIFT.
--- NOTE | 2016-07-07 05:45 | NUR ---
Bettie demarco in ED - 07/07/16 at 0735 by ALEX [facility] AGAIN CONTACTED BUT NOBODY ANSWERED. WILL ENDORSE TO AM SHIFT.
--- NOTE | 2016-07-07 07:30 | NUR ---
AM ELECTRONICS SYSTEM MECHANIC TEIDA MADE AWARE OF PT'S NEED FOR TRANSPORTATION BACK TO HOME.
== END 2016-07-07 01:57 | disposition home or self-care (01) ==
LOC: MED 18:41
DX: M79.1 Myalgia (principal); I10 Essential (primary) hypertension; R94.31 Abnormal electrocardiogram [ECG] [EKG]; E11.9 Type 2 diabetes mellitus without complications